=== PATIENT | male | born 1960 | race Caucasian/White ===

== ENCOUNTER 2019-10-24 06:21 | Day surgery (SDC) | payer BC ==
[~2019-10-24] VITALS: Ht 170.2 cm; Wt 57.4 kg
[~2019-10-24 06:21] MED LIST: NORVASC 5MG5 MG/TAB PO; TENORMIN100 MG PO; ZESTRIL 20MG TA20 MG PO
[2019-10-24 07:27] VITALS: BP 154/87; PULSE 52; TEMP 97.4
[2019-10-24] MEDS ORDERED: ULTRAM 50MG TAB50 MG PO (09:51)
[2019-10-24 10:30] VITALS: BP 132/82; PULSE 80; TEMP 97.5
[2019-10-24 10:45] VITALS: BP 132/83; PULSE 78
[2019-10-24 11:00] VITALS: BP 145/87; PULSE 78
[2019-10-24 11:15] VITALS: BP 133/82; PULSE 68
[2019-10-24 11:30] VITALS: BP 125/77; PULSE 69
--- NOTE | 2019-10-24 12:37 | NUR ---
PT RETURNED FROM PACU PER CART. PT A/OX3, SLEEPY. LUNGS CLEAR, DIMINISHED. HRR, BOWEL SOUNDS PRESENT. BANDAIDS X3 INTACT AND DRY. PT RATES PAIN AT A 3 ON 0-10 SCALE. IVF RUNNING AND PATENT, DENIES NAUSEA AND ASKING FOR WATER AND APPLE JUICE, AT BEDSIDE, WILL MONITOR PROGRESS.
--- NOTE | 2019-10-24 12:42 | NUR ---
PT TOLERATING FLUIDS AND TOLERATING CRACKERS. TALKING WITH . BANDAIDS REMAIN DRY AND INTACT. DENIES NAUSEA. RATES PAIN AT A 4, DENIES WANTING PAIN MEDICATION AT THIS TIME. PT ON O2 AT 2L. REMOVED PT OF O2. SATS AT 96% ON RA. CALL LIGHT IN REACH, WILL MONITOR.
--- NOTE | 2019-10-24 12:47 | NUR ---
PT ALERT AND ORIENTATED, TALKING WITH . TOLERATING FOOD AND FLUIDS. IV DC'D TO LEFT WRIST. PT TOLERATED WELL. VSS, AFEBRILE, REFUSES PAIN MEDICATION. STATES,'I'LL FILL MY SCRIPT AND TAKE IT THEN'. DISMISSAL INSTRUCTIONS GIVEN, SCRIPT GIVEN, PT VOICES UNDERSTANDING. ABDOMINAL BANDAIDS INTACT AND DRY. DISMISSAL INSTRUCTIONS SIGNED. PT TAKEN OUT PER WC TO FAMILY VEHICLE, DRIVING.
== END 2019-10-24 12:57 | disposition home or self-care (01) ==
LOC: SDCO 06:21
DX: K40.20 Bilateral inguinal hernia, without obstruction or gangrene, not specified as recurrent (principal); I10 Essential (primary) hypertension; E78.5 Hyperlipidemia, unspecified; Z80.51 Family history of malignant neoplasm of kidney; Z82.3 Family history of stroke; F17.210 Nicotine dependence, cigarettes, uncomplicated; Z88.5 Allergy status to narcotic agent
CPT/HCPCS: C1781; J0690; J1100; J1885; J2175; J2405; J2704; J3010; J7120